=== PATIENT | female | born 1960 | race Caucasian/White ===

== ENCOUNTER 2020-09-06 13:43 | Outpatient (CLI) | payer OTHER, SELFPAY ==
--- NOTE | ~2020-09-06 | DEXA_ITS ---
Bone Density Report Name: Flower Barriga Age: 60 Sex: Female Ethnicity: White Date of : 1960 Indication: postmenopausal; parental hip fracture; height loss; inflammatory bowel disease; hysterectomy; Referring Provider: YOLA SPRAGUE Study: Bone densitometry was performed. Exam Date: September 06, 2020 Accession number: [id number] Bone Density: Region BMD T-score Z-score Classification AP Spine (L1-L4) 0.962 -0.8 0.6 Normal Femoral Neck (Left) 0.691 -1.4 -0.1 Osteopenia Total Hip (Left) 0.889 -0.4 0.5 Normal Total Hip Bilateral Avg 0.917 -0.2 0.8 Normal Femoral Neck (Right) 0.759 -0.8 0.5 Normal Total Hip (Right) 0.943 0.0 1.0 Normal World Health Organization criteria for BMD impression classify patients as: Normal (T-score at or above -1.0), Osteopenia (T-score between -1.0 and -2.5), or Osteoporosis (T-score at or below -2.5). 10-year Fracture Risk(1): Major Osteoporotic Fracture 15% Hip Fracture 0.6% Reported Risk Factors: [place] (), Neck BMD=0.691, BMI=30.2, parental fracture (1) FRAX(R) Version 3.08. Fracture probability calculated for an untreated patient. Fracture probability may be lower if the patient has received treatment. Clinical Information Provided by Patient: Parent has had a hip fracture Has used the following medications: HRT (i.e. estrogen/hormone therapy), Vitamin D, Calcium Has the following medical conditions: Inflammatory bowel diseases, Hysterectomy Patient maximum height was 62 Menopause Age: 51 No regular weight bearing exercise Onset of menses at age 11 Number of children 0 Impression: The patient has low bone mass, based on the Left Femoral Neck T-score. The patient has an estimated ten-year risk of hip fracture of 0.6% and an estimated ten-year risk of major fracture of 15%, based on the WHO FRAX algorithm. The patient has risk factors, including: parental hip fracture. Discussion: BONE DENSITY IS LOW AT ONE OR MORE SKELETAL SITES. This patient's lowest T-score is low at one or more skeletal sites. It meets the World Health Organization's (WHO) criteria for ?low bone mass? (T-score between -1.0 and -2.5). The patient's 10-year risk of fracture as calculated by FRAX is less than the threshold where pharmacological therapy is recommended by the National Osteoporosis Foundation (NOF). However, all treatment decisions require clinical judgment and consideration of individual patient factors, including patient preferences, comorbidities, previous drug use, risk factors not captured in the FRAX model (e.g., frailty, falls, vitamin D deficiency, increased bone turnover, interval significant decline in bone density) and possible under or overestimation of fracture risk by FRAX. The patient should follow a healthful lifestyle (good nutrition with adequate calci
== END 2020-09-06 13:44 | disposition home or self-care (01) ==
PROVIDERS: PCP Internal Medicine; Visit Provider Obstetrics & Gynecology
DX: Z78.0 Asymptomatic menopausal state (principal); M85.852 Other specified disorders of bone density and structure, left thigh
CPT/HCPCS: 77080

== ENCOUNTER 2021-08-09 00:39 | Day surgery (SDC) | payer OTHER, SELFPAY ==
[2021-07-23 14:44] VITALS: BMI 29.0
--- NOTE | 2021-08-08 16:08 | WPDGICN ---
Assessment and Plan Assessment and plan (1) Chronic diarrhea: Code(s): K52.9 - Noninfective gastroenteritis and colitis, unspecified Status: Acute Assessment and Plan: We will proceed with colonoscopy today I will likely take biopsies to rule out microscopic colitis. Because cholestyramine has not helped we will discontinue that (2) GERD (gastroesophageal reflux disease): Code(s): K21.9 - Gastro-esophageal reflux disease without esophagitis Status: Acute Assessment and Plan: no change in her symptoms. She still has to keep the head of her bed elevated. GI Consult Note Consult date/time: 08/08/21 16:08 HPI: Flower Barriga is a 61 year old female here for colon cancer screening. Of note, she does have persistent problems with diarrhea. She states that she has 3 or 4 bowel movements per day. She is afraid to go out of the house for fear of having a very urgent bowel movement for losing control. She has sensation even after 3 or 4 bowel movements that she is not finished . She had diverticulitis a couple of times 10-12 years ago in in 1999 13 had resection of her sigmoid colon at [facility]. I performed her last colonoscopy in 2010. Lately she has been using Imodium to give her control of her bowels but is afraid to become dependent on it. She did have a cholecystectomy 20 years ago or so and thinks that her stools have been a little on the loose side ever since then. She also has chronic acid reflux. Her last EGD revealed a very lax lower esophageal sphincter. Layne's was not present on biopsies. She was referred to Dr. christie for anti-reflux surgery but because of the COVID vaccine did not get around to doing it. She does still have regurgitation if he lies down flat. She denies dysphagia. She has lost about 10 lb but has been trying to lose weight lately by trying to eat healthier. I asked her if she has had any recent blood work, curious about her liver enzymes. She states that she has just had blood work done will get the results to me. She had that her sister has been diagnosed with DILLON. I had prescribed cholestyramine powder thinking she had bile salt diarrhea but she states that this has had minimal effect on her symptoms. Review of Systems Review of Systems: All systems reviewed & are unremarkable except as noted in HPI and below [facility] [place] Surgical History Surgical History History of appendectomy History of hysterectomy History of incision and drainage 05/04/21 back abscess Hx of cholecystectomy Family History Family History Mother Family history of diabetes mellitus in first degree relative Family history of malignant neoplasm of breast in first degree relative Father Family history of heart disease in male family member before age 55 Other Diabetes mellitus Family history of coronary artery disease Family history of malignant neoplasm Hypertension Social History Social History Smoking status: Never smoker Alcohol intake: former Substance use: never Substance use type: does not use Living arrangements: with family Spiritual care concerns: No Meds Home Medications and Allergies Home Medications Medication Instructions Recorded Confirmed Type estradiol 1 mg tablet 1 mg PO DAILY 05/04/21 08/09/21 History hydrochlorothiazide 12.5 mg capsule 12.5 mg PO DAILY 05/04/21 08/09/21 History cholestyramine-aspartame 4 gram 4 g PO DAILY #30 ea 05/08/21 08/09/21 Rx oral powder for susp in a packet multivitamin [Daily Multivitamin] 1 tablet PO DAILY 07/23/21 08/09/21 History pantoprazole 40 mg PO DAILY 07/23/21 08/09/21 History Allergies Allergy/AdvReac Type Severity Reaction Status Date / Time No Known Drug Allergies Allergy Unknown Unknown Verified 08/09/21 07:42 Exam
[2021-08-09 07:43] VITALS: BP 143/85; PULSE 78; RESP 18; TEMP 36.6; O2SAT 95; BMI 28.7
[2021-08-09] MEDS: LACTATED RINGERS 1,000 ML 150 ML IV CONT (07:45)
--- NOTE | 2021-08-09 08:16 | P.PNAN_ITS ---
Anes - Initial Pre Proc Eval Procedure: Operation Date: 08/09/21 09:00 Proposed Procedures p Screening Colonoscopy - Jens Huff MD Date/Time: 08/09/21 08:16 Surgeon: Jens Huff MD Pre Op Diagnosis: neoplasm screening Patient Data Age: 61 Gender: F Height: 1.57 m Weight: 71.3 kg Last Vital Signs Temp 97.9 F 08/09/21 07:43 Pulse 78 08/09/21 07:43 Resp 18 08/09/21 07:43 BP 143/85 H 08/09/21 07:43 Pulse Ox 95 08/09/21 07:43 Allergies Allergy/AdvReac Type Severity Reaction Status Date / Time No Known Drug Allergies Allergy Unknown Unknown Verified 08/09/21 07:42 Home Medications Medication Instructions Recorded Confirmed Type estradiol 1 mg tablet 1 mg PO DAILY 05/04/21 08/09/21 History hydrochlorothiazide 12.5 mg capsule 12.5 mg PO DAILY 05/04/21 08/09/21 History cholestyramine-aspartame 4 gram 4 g PO DAILY #30 ea 05/08/21 08/09/21 Rx oral powder for susp in a packet multivitamin [Daily Multivitamin] 1 tablet PO DAILY 07/23/21 08/09/21 History pantoprazole 40 mg PO DAILY 07/23/21 08/09/21 History Patient hx anesthesia problems: none Family hx anesthesia problems: none Results Review: All pre-operative results and documents have been reviewed as part of the pre-operative evaluation. [facility] Past Medical History Medical History (Updated 08/09/21 @ 08:13 by Federico Hanna MD) GERD (gastroesophageal reflux disease) Hypertension Surgical History Surgical History History of appendectomy History of hysterectomy History of incision and drainage 05/04/21 back abscess Hx of cholecystectomy Family History Family History Mother Family history of diabetes mellitus in first degree relative Family history of malignant neoplasm of breast in first degree relative Father Family history of heart disease in male family member before age 55 Other Diabetes mellitus Family history of coronary artery disease Family history of malignant neoplasm Hypertension Social History Social History Smoking status: Never smoker Alcohol intake: former Substance use: never Substance use type: does not use Living arrangements: with family Spiritual care concerns: No Anes - Eval Final PreProcedure Day of Procedure 08/09/21 08:16 Patient weight: obese Heart: regular rate and rhythm Lungs: clear to auscultation Airway: Mallampati scale class II Neurological: alert and oriented Last oral intake: >/= 8 hours ASA classification: II Emergent: no Anesthetic plan: proceed Anesthesia type and monitoring: general GIVS and standard monitoring Results Review: All pre-operative results and documents have been reviewed as part of the pre-operative evaluation. Informed Consent: The patient's anesthetic plan and its attendant risks and benefits were discussed with the patient/family/POA. Questions were solicited and answers provided to the satisfaction of the patient/family/POA.
[2021-08-09] MEDS: SIMETHICONE ORAL SUSPENSION 20 MG/0.3 ML 30 ML BOTTLE 0.6 ML IRRIGATION (08:24)
[2021-08-09 08:39] VITALS: BP 95/57; PULSE 69; RESP 14; O2SAT 100
[2021-08-09 08:49] VITALS: BP 98/52; PULSE 75; RESP 24; O2SAT 100
[2021-08-09 09:09] VITALS: BP 102/61; PULSE 66; RESP 22; O2SAT 100
== END 2021-08-09 09:14 | disposition home or self-care (01) ==
PROVIDERS: PCP Internal Medicine; Visit Provider Internal Medicine Gastroenterology
PROC: 0DJD8ZZ Inspection of Lower Intestinal Tract, Via Natural or Artificial Opening Endoscopic (ICD-10-PCS; CPT 45378; principal; 2021-08-09 09:00)
DX: Z12.11 Encounter for screening for malignant neoplasm of colon (principal); K57.30 Diverticulosis of large intestine without perforation or abscess without bleeding; D12.4 Benign neoplasm of descending colon; R19.7 Diarrhea, unspecified; K21.9 Gastro-esophageal reflux disease without esophagitis; I10 Essential (primary) hypertension; E66.9 Obesity, unspecified; Z68.28 Body mass index [BMI] 28.0-28.9, adult
CPT/HCPCS: 45385; 45380; 88305; J2704; J7120

== ENCOUNTER 2023-09-01 17:32 | Emergency (ER) | payer OTHER, SELFPAY ==
--- NOTE | ~2023-09-01 | XR_ITS ---
XR chest 1V portable INDICATION: Upper respiratory infection TECHNIQUE: 2 view chest. FINDINGS: No prior studies for comparison. There is mild bilateral interstitial prominence and peribronchial cuffing. There is no focal consoli dation, pleural effusion, or pneumothorax. The cardiomediastinal silhouette is normal. There is a large hiatal hernia. IMPRESSION: 1. Findings most consistent with bronchiolitis versus an atypical or viral pneumonia. Reviewed, dictated and finalized at location A. [employer] ADMINISTRATOR IMPRESSION: 1. Findings most consistent with bronchiolitis versus an atypical or viral [facility].
[2023-09-01 17:33] VITALS: BP 134/73; PULSE 113; RESP 16; TEMP 37.8; O2SAT 97
--- NOTE | 2023-09-01 17:35 | ED.URI ---
HPI - URI/Sore Throat General Chief Complaint: Upper Respiratory Infection Stated Complaint: SORE THROAT,CONGESTION Time Seen by Provider: 09/01/23 17:34 Source: patient Mode of arrival: ambulatory Limitations: no limitations History of Present Illness HPI Narrative: Patient is a 63 y/o female who presents to the ED with c/o URI sx's. Patient reports she began feeling ill today with fatigue, congestion, sinus pressure/drainage, fevers, sore throat, mild dry cough. She has taken Tylenol and Zyrtec D for her symptoms today. Denies known sick contacts. Denies chest pain or shortness of breath. Denies N/V. Related Data Home Medications Medication Instructions Recorded Confirmed estradiol 1 mg tablet 1 mg PO DAILY 05/04/21 08/09/21 hydrochlorothiazide 12.5 mg capsule 12.5 mg PO DAILY 05/04/21 08/09/21 multivitamin 1 tablet PO DAILY 07/23/21 08/09/21 pantoprazole 40 mg tablet,delayed 40 mg PO DAILY 07/23/21 08/09/21 release Allergies Allergy/AdvReac Type Severity Reaction Status Date / Time No Known Drug Allergies Allergy Unknown Unknown Verified 09/01/23 17:44 Review of Systems Review of Systems: CONSTITUTIONAL: See HPI ENT: See HPI. CARDIOVASCULAR: Denies chest pain, palpitations, or edema. RESPIRATORY: See HPI. GASTROINTESTINAL: Denies abdominal pain, nausea, vomiting. All systems reviewed & are unremarkable except as noted in HPI and below [facility] Past Medical History Medical History GERD (gastroesophageal reflux disease) Hypertension Surgical History Surgical History History of appendectomy History of hysterectomy History of incision and drainage 05/04/21 back abscess Hx of cholecystectomy Family History Family History Mother Family history of diabetes mellitus in first degree relative Family history of malignant neoplasm of breast in first degree relative Father Family history of heart disease in male family member before age 55 Other Diabetes mellitus Family history of coronary artery disease Family history of malignant neoplasm Hypertension Social History Social History (Reviewed 12/25/23 @ 17:54 by LINDSAY Oreilly Smoking status: Never smoker Alcohol intake: former Substance use: never Substance use type: does not use Living arrangements: with family Spiritual care concerns: No Exam Narrative: GENERAL: Mildly ill appearing, well-nourished, non-toxic, in no acute distress. HEAD: Normocephalic, atraumatic. ENT: Mild posterior pharynx erythema, no tonsillar hypertrophy or exudate. Uvula midline and non-edematous. RESPIRATORY: Airway patent, respirations nonlabored. Clear to auscultation bilaterally, no rales, rhonchi, wheezing. No focal lung sounds heard from auscultation. CARDIOVASCULAR: Borderline tachycardic with regular rhythm without murmurs, rubs, or gallops. MUSCULOSKELETAL: Moves all extremities. No gross deformities. SKIN: Warm, dry, normal color. NEURO: A&O X3. Speech clear. Cranial nerves II-XII grossly intact. No ataxic movements. PSYCHIATRIC: Appropriate mood and affect. Normal interaction. Course Vital Signs Vital signs: Vital Signs Temperature 100.0 F H 09/01/23 17:33 Pulse Rate 113 H 09/01/23 17:33 Respiratory Rate 16 09/01/23 17:33 Blood Pressure 134/73 09/01/23 17:33 Pulse Oximetry 97 09/01/23 17:33 Oxygen Delivery Room Air 09/01/23 17:33 Temperature 100.0 F H 09/01/23 17:33 Pulse Rate 113 H 09/01/23 17:33 Respiratory Rate 16 09/01/23 17:33 Blood Pressure 134/73 09/01/23 17:33 Pulse Oximetry 97 09/01/23 17:33 Oxygen Delivery Room Air 09/01/23 17:33 MDM - URI/Sore Throat MDM Narrative Medical decision making narrative: Patient presented to ED with 1 day history of URI symptoms. VSS upon arrival. Mi
[2023-09-01] MEDS: ACETAMINOPHEN 500 MG TABLET 1000 MG PO (17:58)
[2023-09-01] MEDS: LIDOCAINE HCL 2% VISC SOLN 15 ML UDC PO (17:58)
[2023-09-01 18:16] LABS: Strep Group A RT-PCR NOT DETECTED (Negative)
[2023-09-01 18:25] LABS: Influenza A QL RT-PCR Negative (Negative); Influenza B QL RT-PCR Negative (Negative); RSV RNA, RT-PCR Negative (Negative); SARS-CoV-2 RNA PCR Positive (Negative)
== END 2023-09-01 18:44 | disposition home or self-care (01) ==
PROVIDERS: Emergency Provider Physician Assistant; PCP Internal Medicine
DX: U07.1 COVID-19 (principal); I10 Essential (primary) hypertension
CPT/HCPCS: 71045; 87637; 87651; 99283; A9270

== ENCOUNTER 2025-06-21 11:15 | Outpatient (RCR) | payer OTHER, SELFPAY ==
--- NOTE | 2025-05-30 17:14 | OPREHPOC ---
Outpatient Therapy Plan of Care This is a Multidisciplinary Plan of Care that may contain components documented by all disciplines (PT, OT, and ST.) PT Problem 1 PT Problem #1 Knowledge Deficit PT Goal 1 Goal / Goal Update [place] with HEP Target Visit 4 PT Goal 2 Goal / Goal Update Report no knee pain greater than a 2/10 Target Visit 8 PT Problem 2 PT Problem #2 Impaired Range of Motion PT Goal 1 Goal / Goal Update 1. Achieve terminal knee extension of left knee to 0 degrees 2. Improve L knee flexion ROM to 120 degrees Target Visit 8 PT Problem 3 PT Problem #3 Impaired Strength PT Goal 1 Goal / Goal Update Improve gross L knee strength to 5/5 to improve stability and functional strength Target Visit 8 PT Problem 4 PT Problem #4 Impaired Gait PT Goal 1 Goal / Goal Update Ambulate independent of AD with even stride length bilaterally Target Visit 8
--- NOTE | 2025-05-30 17:14 | PTOPEVAL1 ---
Assessment and note entered by Tra Abdalla, PT Evaluation Information Assessment Status Evaluation Diagnosis Z96.652 Left TKA revision ICD-10 Condition Codes (PT) Pain in left knee M25.562 Onset 04/22/25 Subjective Information Reports that overall that about a month out she is still having some pain. Still feels that she has some residual glue on the knee and feels it is pulling the skin. She is getting some pain relief with elevation of leg. Walking with a single point cane. She has a follow up with 06/29/25. She does nto have any stairs but would like to be able to do them. Reported Pain Level Pain Score 2: Self Report Assessment PT Clinical Summary Patient presents with s/p L knee revision of replacement. She has lack of full terminal knee extension and approximately 15 degrees lack in full functional knee flexion ROM. Patient will benefit forms killed therapy to improve knee mobility and functional flexibility to restore proper gait cycle and restore full functional ROM and mobility. Plan of Care Interventions Gait Training,Manual Therapy,Neuro Re-education, Therapeutic Activities,Therapeutic Exercise PT Services Indicated Yes Treatment Frequency and 2x/week for 8 visits Duration These treatments will address the objective and functional deficits as defined above. The patient will be advanced safely and appropriately in order for the patient to progress towards his/her prior level of function. Additional exercises will be introduced and as well as a comprehensive home exercise program upon discharge, if needed, ?to ensure carryover of functional gains achieved in the clinic. This treatment plan has been reviewed and agreement upon by the patient.
== END 2025-08-28 23:59 | disposition home or self-care (01) ==
LOC: ANHGOSHPT 11:15
PROVIDERS: PCP Internal Medicine
DX: Z47.1 Aftercare following joint replacement surgery (principal); Z48.89 Encounter for other specified surgical aftercare; M25.562 Pain in left knee; Z96.652 Presence of left artificial knee joint
CPT/HCPCS: 97016; 97110; 97116; 97140; 97161; 97530